=== PATIENT | female | born 1995 | race African-American/Black ===

== ENCOUNTER 2017-01-30 13:38 | Emergency (ER) | payer OTHER ==
[~2017-01-30] VITALS: Ht 170.2 cm; Wt 56.8 kg
[~2017-01-30 13:38] MED LIST: ANUCORT-HC25 MG RC; FIORICET WI1 CAPSULE PO; FLEXERIL10 MG PO; FLONASE16 G1 BOTH NARES; IBUPROFEN800 MG PO; MUCUS ER600 MG PO; NAPROSYN500 MG PO; PROCTOCORT30 M1 PR; REGLAN10 MG PO; TYLENOL EXTRA500 MG PO
[2017-01-30 16:14] LABS: HEMATOCRIT 29.4 % (36.0-46.0); HEMOGLOBIN 10.5 G/DL (11.9-15.5); MCH 31.3 PG (29.0-34.0); MCHC 35.7 G/DL (30.0-36.0); MCV 87.8 FL (83-99); PLATELET COUNT 179 K/uL (156-360); RBC DIS.WIDTH-CV 12.2 % (11.8-14.6); RBC DIS.WIDTH-SD 39.2 % (39-53); RED BLOOD COUNT 3.35 M/uL (3.80-5.20); WHITE BLOOD COUNT 10.2 K/uL (4.1-10.2)
[2017-01-30 16:26] LABS: ALBUMIN 2.9 g/dL (3.2-4.8); CHLORIDE 103 mEq/L (99-109); POTASSIUM 3.3 mEq/L (3.7-5.4); SODIUM 132 mEq/L (136-147)
[2017-01-30 16:28] LABS: GLUCOSE 99 mg/dL (70-99)
[2017-01-30 16:29] LABS: TOTAL PROTEIN 6.5 g/dL (6.4-8.3)
[2017-01-30 16:30] LABS: TOTAL BILIRUBIN 0.8 mg/dL (0.0-1.0)
[2017-01-30 16:32] LABS: ALKALINE PHOSPHATASE 58 IU/L (3-129); CREATININE 0.7 mg/dL (0.6-1.3); GFR ESTIMATE (CALCULATED) > 59 mL/min/
[2017-01-30 16:33] LABS: UREA NITROGEN (BUN) 7 mg/dL (9-23)
[2017-01-30 16:34] LABS: AST (GOT) 25 IU/L (2-34)
[2017-01-30 16:35] LABS: ALT (GPT) 11 IU/L (3-49)
[2017-01-30 16:36] LABS: LIPASE 18 U/L (1.0-51.0)
[2017-01-30] MEDS ORDERED: MOTRIN600 MG PO (16:37)
[2017-01-30] MEDS ORDERED: PHENERGAN-CODE120 ML PO (16:37)
[2017-01-30 16:43] LABS: QUANTITATIVE HCG < 4.0 MIU/ML
[2017-01-30 16:57] LABS: APPEARANCE SL.HAZY ((CLEAR)); BILIRUBIN SMALL; BLOOD LARGE; COLOR AMBER ((YELLOW)); GLUCOSE (STRIP) NEGATIVE; KETONES 80; LEUKOCYTES NEGATIVE; NITRITE NEGATIVE; PROTEIN (STRIP) 100; SPECIFIC GRAVITY 1.032 (1.000-1.030)
[2017-01-30 17:18] LABS: EPITHELIAL CELLS 1+ /HPF; MUCUS 4+ /LPF; RED BLOOD CELLS TNTC /HPF (0-5)
[2017-01-30 17:19] LABS: BACTERIA 1+ /HPF; WHITE BLOOD CELLS 0-5 /HPF (0-5)
[2017-01-30 17:20] VITALS: BP 116/78
== END 2017-01-30 17:54 | disposition home or self-care (01) ==
LOC: EME 13:38
PROVIDERS: Nurse Practitioner Family
DX: J10.1 Influenza due to other identified influenza virus with other respiratory manifestations (principal); D64.9 Anemia, unspecified; E86.0 Dehydration; E87.6 Hypokalemia; E87.1 Hypo-osmolality and hyponatremia; F17.200 Nicotine dependence, unspecified, uncomplicated
CPT/HCPCS: 71020; 80053; 81003; 83690; 84702; 85027; 87502; 99281; 99285; J1885; J7030